=== PATIENT | male | born 1955 | race Caucasian/White ===

== ENCOUNTER 2017-03-27 06:11 | Day surgery (SDC) | payer MEDICARE ==
--- NOTE | 2017-03-22 10:46 | RADIOLOGY REPORT (SQ) ---
EXAM DESCRIPTION: CHEST PA/LATERAL COMPLETED DATE/TIME: 03/22/2017 10:23 am REASON FOR STUDY: PRE-OP COMPARISON: Chest films 07/12/2015, 06/04/2008, 04/27/2007 EXAM PARAMETERS: NUMBER OF VIEWS: two views TECHNIQUE: Digital Frontal and Lateral radiographic views of the chest acquired. RADIATION DOSE: NA LIMITATIONS: none FINDINGS: LUNGS AND PLEURA: No opacities, masses or pneumothorax. No pleural effusion. MEDIASTINUM AND HILAR STRUCTURES: No masses or contour abnormalities. HEART AND VASCULAR STRUCTURES: Heart normal size. No evidence for failure. BONES: Osteoporotic with mid thoracic kyphoplasties. HARDWARE: Dorsal column stimulator electrodes over the mid thoracic spine. OTHER: No other significant finding. IMPRESSION: No acute infiltrates. TECHNICAL DOCUMENTATION: JOB ID: [id number] [employer]- All Rights Reserved
[2017-03-22 11:07] LABS: HEMATOCRIT 49.3 % (37.9-51.0); HEMOGLOBIN 17.2 g/dL (13.5-17.0); HGB HCT DIFFERENCE 2.3; MEAN CORPUSCULAR HEMOGLOBIN 29.4 pg (27.0-33.4); MEAN CORPUSCULAR HGB CONC 34.8 g/dL (32.0-36.0); MEAN CORPUSCULAR VOLUME 84 fl (80-97); RED BLOOD COUNT 5.84 10^6/uL (4.35-5.55); RED CELL DISTRIBUTION WIDTH 14.6 % (11.5-14.0); WHITE BLOOD COUNT 6.5 10^3/uL (4.0-10.5)
[2017-03-22 11:13] LABS: APPEARANCE,URINE SLIGHTLY-CLOUDY; BILIRUBIN,URINE NEGATIVE (NEGATIVE); GLUCOSE, URINE 50 mg/dL (NEGATIVE); KETONES,URINE NEGATIVE (NEGATIVE); LEUKOCYTE ESTERASE,URINE NEGATIVE (NEGATIVE); NITRITE,URINE NEGATIVE (NEGATIVE); PROTEIN,URINE NEGATIVE (NEGATIVE); URINE SPECIFIC GRAVITY 1.005; UROBILINOGEN,URINE NEGATIVE mg/dL (<2.0)
[2017-03-22 11:52] LABS: PROTHROMBIN TIME 13.1 SEC (11.4-15.4)
[2017-03-22 11:53] LABS: PARTIAL THROMBOPLASTIN TIME 37.4 SEC (23.5-35.8)
--- NOTE | 2017-03-22 15:37 | EKG REPORT ---
SEVERITY:- BORDERLINE ECG - SINUS RHYTHM BORDERLINE RIGHT AXIS DEVIATION BORDERLINE INFERIOR Q WAVES : Confirmed by: Regis Montano 22-Mar-2017 15:36:19
[~2017-03-27 06:11] MED LIST: CLINDAMYCIN 600 MG/D5W RTU 600 MG/50 ML RTUPB IV PRN; LACTATED RINGERS 1000 ML IV PRN; LIDOCAINE 0.5% INJ-PF (5 MG/ML) 50 ML SDV SUBCUT PRN
[2017-03-27] MEDS ORDERED: BUPIVACAINE HCL 0.5%-EPI 1:200000 INJ/PF 30 ML VIAL ONE (07:46)
[2017-03-27] MEDS ORDERED: MIDAZOLAM 2 MG/2 ML INJ ONE (07:46)
[2017-03-27] MEDS ORDERED: PROPOFOL INJ 200 MG/20 ML VIAL IV ONE (07:46)
[2017-03-27] MEDS ORDERED: LIDOCAINE 1% INJ-PF (10 MG/ML) 30 ML SDV ONE (07:46)
[2017-03-27] MEDS ORDERED: FENTANYL CITRATE INJ/PF 100 MCG/2 ML AMPUL ONE (07:46)
[2017-03-27] MEDS ORDERED: FENTANYL CITRATE INJ/PF 100 MCG/2 ML AMPUL IV PRN ×2 (09:01)
[2017-03-27] MEDS ORDERED: ONDANSETRON HCL INJ/PF 4 MG/2 ML SDV IV PRN ×2 (09:01→09:17)
[2017-03-27] MEDS ORDERED: OXYCODONE HCL IR 5 MG TABLET PO PRN (09:16)
[2017-03-27] MEDS ORDERED: CLINDAMYCIN 600 MG/D5W RTU 600 MG/50 ML RTUPB IV ONE (09:55)
--- NOTE | 2017-03-27 10:12 | OPERATIVE REPORT E ---
Operative Report NAME: MARISSA MCCAULEY : 1955 AGE: 61Y DATE OF SURGERY: 03/27/2017 ROOM: PREOPERATIVE DIAGNOSIS: End of life of battery spinal cord stimulator. POSTOPERATIVE DIAGNOSIS: End of life of battery spinal cord stimulator with replacement of battery. PROCEDURE: Spinal cord stimulator battery replacement and adapter replacement. SURGEON: SHANTAL RUBI M.D. TANKROOM WORKER: Dr. Lili Pichardo ANESTHESIA: MAC. COMPLICATIONS: None. PROCEDURE IN DETAIL: After obtaining informed consent and advising the patient of the risks and benefits including neurological injury, bleeding, infection, battery no longer working, leads no longer working and requiring replacement, allergic reaction, and , he was taken to the operating room. He was placed comfortably in the supine position propped up on the right side. Comfort was assessed visually and verbally with the patient. He was then prepped with chlorhexidine with a suitable drying time prior to draping. The pulse generator was readily palpable, of course, in the right lower quadrant on the abdomen. The previous incisional scar was marked and anesthetized with 1% lidocaine followed by Marcaine 0.25%. Sharp and blunt dissection was performed down to the pulse generator pocket which was readily identified. Electrocautery was minimally necessary for hemostasis. The generator was removed easily. At this point it was noticed that only one lead was placed in the prior battery. The new generator was brought to the operating room table. All hex nuts on the previous battery were loosened so the lead could be removed. The lead was then attached to the new adapter and then connected to the new battery. The new battery was then checked with proper impedances covering the new lead. The generator was placed in the pocket and all impedance was tested and felt to be satisfactory. Good connectivity was obtained. The wound was then closed in interrupted vertical mattress sutures and 3-0 Polysorb. The skin came nicely together. The region was cleansed again followed by placement of fiona and then placement of Dermabond. When this was dry suitable Tegaderm dressing was placed on this. He was then taken back to the PACU for further postoperative care and monitoring. DICTATING PHYSICIAN: SHANTAL RUBI M.D. [id number] PHY#: [id number] ID: [id number] JOB#: [id number] ACCT: [id number] cc:SHANTAL RUBI M.D. >
[2017-03-27 12:10] VITALS: BP 128/69
== END 2017-03-27 11:15 | disposition home or self-care (01) ==
LOC: OROUT 06:11
PROVIDERS: ATTEND Pain Medicine Interventional Pain Medicine
PROC: 00HU3MZ Insertion of Neurostimulator Lead into Spinal Canal, Percutaneous Approach (ICD-10-PCS; 2017-03-27)
PROC: 00PU0MZ Removal of Neurostimulator Lead from Spinal Canal, Open Approach (ICD-10-PCS; 2017-03-27)
PROC: 0JPT0MZ Removal of Stimulator Generator from Trunk Subcutaneous Tissue and Fascia, Open Approach (ICD-10-PCS; 2017-03-27)
PROC: 0JH70MZ Insertion of Stimulator Generator into Back Subcutaneous Tissue and Fascia, Open Approach (ICD-10-PCS; principal; 2017-03-27 08:00)
DX: G89.4 Chronic pain syndrome (principal); J44.9 Chronic obstructive pulmonary disease, unspecified; K21.9 Gastro-esophageal reflux disease without esophagitis; M19.90 Unspecified osteoarthritis, unspecified site; E11.9 Type 2 diabetes mellitus without complications; E66.9 Obesity, unspecified; Z79.01 Long term (current) use of anticoagulants; Z45.49 Encounter for adjustment and management of other implanted nervous system device; Z88.5 Allergy status to narcotic agent; Z79.84 Long term (current) use of oral hypoglycemic drugs; Z68.30 Body mass index [BMI] 30.0-30.9, adult
CPT/HCPCS: 93005; 36415 ×2; 82962; 84132; 85027; 85610; 85730; 81001; 71020; 93010; 63685; 63650; C1820; C1787; J2250; J3490 ×2; J2704; 300; J3010